=== PATIENT | female | born 2000 | race Caucasian/White ===

== ENCOUNTER 2022-08-24 09:57 | Outpatient (CLI) | payer OTHER, SELFPAY | END 2022-08-24 09:58 | disposition home or self-care (01) | LOC: FRMREF 09:58 | PROVIDERS: PCP Physician Assistant Medical; Visit Provider Registered Nurse | DX: N94.6 Dysmenorrhea, unspecified (principal) | CPT/HCPCS: 84443 ==

== ENCOUNTER 2023-06-19 16:20 | Outpatient (CLI) | payer OTHER, SELFPAY | END 2023-06-19 16:21 | disposition home or self-care (01) | LOC: NFLDREF 06-24 04:39 | PROVIDERS: PCP Physician Assistant Medical; Referring Provider Physician Assistant Medical; Visit Provider Physician Assistant Medical | DX: Z11.3 Encounter for screening for infections with a predominantly sexual mode of transmission (principal) | CPT/HCPCS: 87491; 87591 ==

== ENCOUNTER 2024-09-22 07:27 | Outpatient (CLI) | payer OTHER, SELFPAY ==
[2024-09-22 15:16] LABS: Chlamydia DNA Amplified* NOT DETECTED (No Detected); GC DNA Amplified* NOT DETECTED (No Detected)
== END 2024-09-22 07:28 | disposition home or self-care (01) ==
PROVIDERS: PCP Physician Assistant Medical; Visit Provider Physician Assistant Medical
DX: Z13.228 Encounter for screening for other metabolic disorders (principal); Z13.6 Encounter for screening for cardiovascular disorders; Z13.29 Encounter for screening for other suspected endocrine disorder; Z11.3 Encounter for screening for infections with a predominantly sexual mode of transmission; Z12.4 Encounter for screening for malignant neoplasm of cervix
CPT/HCPCS: 80053; 80061; 84443; 87491; 87591; 87624; 87625; 88141; 88142